=== PATIENT | female | born 1960 | race Hispanic/Latino ===

== ENCOUNTER 2025-02-12 08:32 | Outpatient (CLI) | payer MEDICAID | END 2025-02-12 08:33 | disposition home or self-care (01) | LOC: BICCT 08:32 | PROVIDERS: ATTEND Anesthesiology | DX: M54.16 Radiculopathy, lumbar region (principal); M50.123 Cervical disc disorder at C6-C7 level with radiculopathy; M48.061 Spinal stenosis, lumbar region without neurogenic claudication; M48.07 Spinal stenosis, lumbosacral region; M48.12 Ankylosing hyperostosis [Forestier], cervical region | CPT/HCPCS: 72125; 72131; 77067 ==

== ENCOUNTER 2025-04-03 14:53 | Outpatient (CLI) | payer MEDICAID | END 2025-04-03 14:54 | disposition home or self-care (01) | LOC: BICRAD 14:53 | PROVIDERS: ATTEND Student in an Organized Health Care Education/Training Program | DX: M25.562 Pain in left knee (principal); M17.11 Unilateral primary osteoarthritis, right knee | CPT/HCPCS: 73565 ==